=== PATIENT | female | born 1955 | race Caucasian/White ===

== ENCOUNTER 2021-12-12 05:42 | Day surgery (SDC) | payer OTHER ==
[~2021-12-12] VITALS: Ht 160 cm; Wt 86.3 kg
[~2021-12-12 05:42] MED LIST: RINGERS SOLUTION,LACTATED 500 ML IV ONE
[2021-12-12] MEDS ORDERED: HYALURONATE SOD 8.5MG/0.85ML 10 MG/ML SYRINGE IO ONE (05:43)
[2021-12-12] MEDS ORDERED: LIDOCAINE/PF 1% 2 ML VIAL CAUDAL ONE (05:43)
[2021-12-12] MEDS ORDERED: TETRACAINE HCL/PF 0.5% 4 ML OPHTHALMIC SOLUTION OD ONE (05:43)
[2021-12-12] MEDS ORDERED: POVIDONE-IODINE 10% 15 ML SOLUTION UD TP ONE (05:43)
[2021-12-12] MEDS ORDERED: EPINEPHrine 1:1,000 [1 MG/ML] AMP ET ONE (05:43)
[2021-12-12] MEDS ORDERED: PrednisoLONE ACETATE 1% 5 ML OPHTHALMIC SUSPENSION AD ONE (05:43)
[2021-12-12] MEDS ORDERED: MOXIFLOXACIN HCL 0.5% 3 ML OPHTHALMIC SOLUTION ONE (05:50)
[2021-12-12] MEDS ORDERED: RINGERS SOLUTION,LACTATED 500 ML IV ONE (05:50)
[2021-12-12] MEDS ORDERED: TETRACAINE HCL/PF 0.5% 4 ML OPHTHALMIC SOLUTION ONE ×2 (05:50→06:20)
[2021-12-12] MEDS ORDERED: TROPICAMIDE 1% 2 ML OPHTHALMIC SOLUTION ONE (05:50)
[2021-12-12] MEDS ORDERED: KETOROLAC TROMETHAMINE 0.5% 5 ML OPHTHALMIC SOLUTION ONE (05:50)
[2021-12-12] MEDS ORDERED: PHENYLEPHRINE HCL 2.5% 2 ML OPHTHALMIC SOLUTION ONE (05:51)
[2021-12-12] MEDS ORDERED: CYCLOPENTOLATE HCL 1% 2 ML OPHTHALMIC SOLUTION ONE (05:51)
[2021-12-12 06:18] LABS: COVID AG,FIA SOURCE NASAL SWAB
[2021-12-12] MEDS ORDERED: EPINEPHrine 1:1,000 [1 MG/ML] AMP ONE (06:19)
[2021-12-12] MEDS ORDERED: LIDOCAINE/PF 1% 2 ML VIAL ONE (06:20)
[2021-12-12] MEDS ORDERED: POVIDONE-IODINE 10% 15 ML SOLUTION UD ONE (06:20)
[2021-12-12] MEDS ORDERED: NEOMYCIN/POLYMYXIN B/DEXAMETH 3.5 GM OPHTHALMIC OINTMENT ONE (06:20)
[2021-12-12] MEDS: CYCLOPENTOLATE HCL 1% 2 ML OPHTHALMIC SOLUTION OD SCH ×3 (06:25→06:40)
[2021-12-12] MEDS: PHENYLEPHRINE HCL 2.5% 2 ML OPHTHALMIC SOLUTION OD SCH ×3 (06:25→06:40)
[2021-12-12] MEDS: KETOROLAC TROMETHAMINE 0.5% 5 ML OPHTHALMIC SOLUTION OD SCH ×3 (06:25→06:40)
[2021-12-12] MEDS: MOXIFLOXACIN HCL 0.5% 3 ML OPHTHALMIC SOLUTION OD SCH ×3 (06:25→06:40)
[2021-12-12] MEDS: TROPICAMIDE 1% 2 ML OPHTHALMIC SOLUTION OD SCH ×3 (06:26→06:40)
[2021-12-12] MEDS: TETRACAINE HCL/PF 0.5% 4 ML OPHTHALMIC SOLUTION OD SCH ×3 (06:28→06:40)
[2021-12-12 06:50] LABS: GLUCOMETER DEV NAME(LOC) SDS.; GLUCOSE,POINT OF CARE 80 MG/DL (70-110)
[2021-12-12] MEDS ORDERED: PrednisoLONE ACETATE 1% 5 ML OPHTHALMIC SUSPENSION ONE (06:59)
[2021-12-12] MEDS ORDERED: MIDAZOLAM HCL 2 MG/2 ML VIAL IVP ONE (12:00)
[2021-12-12] MEDS ORDERED: FentaNYL CITRATE PF 100 MCG/2 ML VIAL IVP ONE (12:00)
== END 2021-12-12 08:25 | disposition home or self-care (01) ==
LOC: SURGERY 05:42
PROVIDERS: ATTEND Ophthalmology
DX: E11.36 Type 2 diabetes mellitus with diabetic cataract (principal); H25.11 Age-related nuclear cataract, right eye; I10 Essential (primary) hypertension; E66.9 Obesity, unspecified; Z79.82 Long term (current) use of aspirin; Z79.4 Long term (current) use of insulin; Z98.890 Other specified postprocedural states; E11.3293 Type 2 diabetes mellitus with mild nonproliferative diabetic retinopathy without macular edema, bilateral; Z79.899 Other long term (current) drug therapy; Z86.73 Personal history of transient ischemic attack (TIA), and cerebral infarction without residual deficits
CPT/HCPCS: 66984; 82962; 87426; C9803; J0171; J2250; J3010; J3490; J7120; V2632

== ENCOUNTER 2022-01-25 05:36 | Day surgery (SDC) | payer OTHER ==
[~2022-01-25] VITALS: Ht 160 cm; Wt 84.0 kg
[2022-01-25] MEDS ORDERED: MIDAZOLAM HCL 2 MG/2 ML VIAL IVP ONE (05:37)
[2022-01-25] MEDS ORDERED: FentaNYL CITRATE PF 100 MCG/2 ML VIAL IVP ONE (05:37)
[2022-01-25] MEDS ORDERED: RINGERS SOLUTION,LACTATED 500 ML IV ONE (05:38)
[2022-01-25 06:07] LABS: COVID AG,FIA SOURCE NASOPHARYNGEAL
[2022-01-25] MEDS ORDERED: KETOROLAC TROMETHAMINE 0.5% 5 ML OPHTHALMIC SOLUTION ONE (06:07)
[2022-01-25] MEDS ORDERED: TETRACAINE HCL/PF 0.5% 4 ML OPHTHALMIC SOLUTION ONE ×2 (06:07→12:50)
[2022-01-25] MEDS ORDERED: TROPICAMIDE 1% 2 ML OPHTHALMIC SOLUTION ONE (06:08)
[2022-01-25] MEDS ORDERED: CYCLOPENTOLATE HCL 1% 2 ML OPHTHALMIC SOLUTION ONE (06:08)
[2022-01-25] MEDS ORDERED: MOXIFLOXACIN HCL 0.5% 3 ML OPHTHALMIC SOLUTION ONE (06:08)
[2022-01-25] MEDS ORDERED: PHENYLEPHRINE HCL 2.5% 2 ML OPHTHALMIC SOLUTION ONE (06:08)
[2022-01-25] MEDS: MOXIFLOXACIN HCL 0.5% 3 ML OPHTHALMIC SOLUTION OS SCH ×3 (06:20→06:37)
[2022-01-25] MEDS: CYCLOPENTOLATE HCL 1% 2 ML OPHTHALMIC SOLUTION OS SCH ×3 (06:20→06:38)
[2022-01-25] MEDS: PHENYLEPHRINE HCL 2.5% 2 ML OPHTHALMIC SOLUTION OS SCH ×3 (06:20→06:38)
[2022-01-25] MEDS: TROPICAMIDE 1% 2 ML OPHTHALMIC SOLUTION OS SCH ×3 (06:20→06:38)
[2022-01-25] MEDS: KETOROLAC TROMETHAMINE 0.5% 5 ML OPHTHALMIC SOLUTION OS SCH ×3 (06:20→06:38)
[2022-01-25] MEDS: TETRACAINE HCL/PF 0.5% 4 ML OPHTHALMIC SOLUTION OS SCH ×3 (06:21→06:38)
[2022-01-25] MEDS ORDERED: METF-446 PO (06:52)
[2022-01-25] MEDS ORDERED: LISI40TA9 PO (06:52)
[2022-01-25] MEDS ORDERED: CARV6.2534 PO (06:52)
[2022-01-25] MEDS ORDERED: SIMV-46 PO (06:52)
[2022-01-25] MEDS ORDERED: GABA-1181 PO (06:53)
[2022-01-25 07:01] LABS: GLUCOMETER DEV NAME(LOC) SDS.; GLUCOSE,POINT OF CARE 65 MG/DL (70-110)
[2022-01-25] MEDS ORDERED: BALANCED SALT 15 ML OPHTHALMIC IRRIG.SOLN ONE (12:50)
[2022-01-25] MEDS ORDERED: POVIDONE-IODINE 10% 15 ML SOLUTION UD ONE (12:50)
[2022-01-25] MEDS ORDERED: EPINEPHrine 1:1,000 [1 MG/ML] VIAL ONE (12:50)
[2022-01-25] MEDS ORDERED: HYALURONATE SOD 8.5MG/0.85ML 10 MG/ML SYRINGE IO ONE (12:50)
[2022-01-25] MEDS ORDERED: NEOMYCIN/POLYMYXIN B/DEXAMETH 3.5 GM OPHTHALMIC OINTMENT ONE (12:50)
[2022-01-25] MEDS ORDERED: LIDOCAINE/PF 1% 2 ML VIAL ONE (12:50)
== END 2022-01-25 08:35 | disposition home or self-care (01) ==
LOC: SURGERY 05:36
PROVIDERS: ATTEND Ophthalmology
DX: E11.36 Type 2 diabetes mellitus with diabetic cataract (principal); H25.12 Age-related nuclear cataract, left eye; I10 Essential (primary) hypertension; E66.9 Obesity, unspecified; E78.00 Pure hypercholesterolemia, unspecified; Z79.899 Other long term (current) drug therapy; Z90.49 Acquired absence of other specified parts of digestive tract; Z98.890 Other specified postprocedural states; Z98.41 Cataract extraction status, right eye
CPT/HCPCS: 66984; 82962; 87426; C9803; J0171; J2250; J3010; J3490; J7120; V2632